=== PATIENT | female | born 2000 | race Caucasian/White ===

== ENCOUNTER 2021-01-27 20:44 | Emergency (ER) | payer MEDICAID ==
[~2021-01-27] VITALS: Ht 180.3 cm; Wt 67.6 kg
[2021-01-27 20:56] VITALS: Ht 180.3 cm; Wt 67.6 kg
[2021-01-27] MEDS ORDERED: MOT600 PO (22:56)
[2021-01-27 23:15] VITALS: BP 134/69
== END 2021-01-27 23:12 | disposition home or self-care (01) ==
LOC: ED 20:44
DX: S52.92XA Unspecified fracture of left forearm, initial encounter for closed fracture (principal); W17.89XA Other fall from one level to another, initial encounter; Y93.23 Activity, snow (alpine) (downhill) skiing, snowboarding, sledding, tobogganing and snow tubing; Y92.89 Other specified places as the place of occurrence of the external cause; Y99.8 Other external cause status
CPT/HCPCS: J1885